=== PATIENT | female | born 1995 | race American Indian/Alaskan Native ===

== ENCOUNTER 2019-05-13 11:06 | Emergency (ER) | payer SELFPAY ==
[2019-05-13 11:42] VITALS: BP 112/83
--- NOTE | 2019-05-13 11:47 | Event Note ---
ED Screening Note Date of service: 05/13/19 Time: 11:46 ED Screening Note: 24 y/o female comes in for 3 day history of abd pain with diarrhea than next day having urinary frequency and pain or LLQ no to RLQ. This initial assessment/diagnostic orders/clinical plan/treatment(s) is/are subject to change based on patients health status, clinical progression and re- assessment by fellow clinical providers in the ED. Further treatment and workup at subsequent clinical providers discretion. Patient/guardian urged not to elope from the ED as their condition may be serious if not clinically assessed and managed. Initial orders include: UA HCG
[2019-05-13 12:21] LABS: HCG Qualitative,Urine Positive (Negative)
[2019-05-13 12:41] LABS: Bilirubin,Urine NEG (Negative); Blood,Urine NEG (Negative); Color,Urine Yellow (Yellow); Protein,Urine <15 mg/dL mg/dL (Negative); Urobilinogen,Urine < 2.0 mg/dL (<2.0)
--- NOTE | 2019-05-13 14:55 | Emergency Department Report ---
ED Female HPI - General Chief complaint: Abdominal Pain Stated complaint: (L) SIDE PAIN/DIARRHEA/DIZZINESS Time Seen by Provider: 05/13/19 11:45 Source: patient Mode of arrival: Ambulatory Limitations: No Limitations - History of Present Illness MD Complaint: dysuria, pelvic pain -: Sudden, days(s) (3) Location: suprapubic Radiation: non-radiating Severity: moderate Quality: cramping, sharp, dull Consistency: constant Are you Now?: No Associated Symptoms: denies other symptoms. denies: vaginal bleeding, abdominal pain, dysuria, hematuria, rash, weakness - Related Data Sexually active: No Previous Rx's Medication Instructions Recorded Last Taken Type Acetaminophen [Tylenol Extra 500 mg PO TID #20 tablet 12/27/18 Unknown Rx Strength] Allergies Allergy/AdvReac Type Severity Reaction Status Date / Time No Known Allergies Allergy Verified 05/13/19 11:10 ED Review of Systems ROS: Stated complaint: (L) SIDE PAIN/DIARRHEA/DIZZINESS Other details as noted in HPI Comment: All other systems reviewed and negative ED Past Medical Hx - Past Medical History Previous Medical History?: Yes Hx Asthma: Yes Additional medical history: pcos - Surgical History Past Surgical History?: Yes Additional Surgical History: - Social History Smoking Status: Never Smoker Substance Use Type: None - Medications Home Medications: Home Medications Medication Instructions Recorded Confirmed Last Taken Type Acetaminophen [Tylenol Extra 500 mg PO TID #20 tablet 12/27/18 Unknown Rx Strength] ED Physical Exam - General Limitations: No Limitations General appearance: alert, in no apparent distress - Head Head exam: Present: atraumatic, normocephalic - Eye Eye exam: Present: normal appearance, PERRL, EOMI Pupils: Present: normal accommodation - ENT ENT exam: Present: normal exam, mucous membranes moist, TM's normal bilaterally - Neck Neck exam: Present: normal inspection, full ROM - Respiratory Respiratory exam: Present: normal lung sounds bilaterally. Absent: respiratory distress, wheezes, rales, chest wall tenderness, accessory muscle use - Cardiovascular Cardiovascular Exam: Present: regular rate, normal rhythm. Absent: systolic murmur, diastolic murmur, rubs, gallop - GI/Abdominal GI/Abdominal exam: Present: soft, tenderness (tenderness to the suprapubic region with palpation. No CVA tenderness. Os is 2+), normal bowel sounds - Extremities Exam Extremities exam: Present: normal inspection - Back Exam Back exam: Present: normal inspection - Neurological Exam Neurological exam: Present: alert, oriented X3 - Psychiatric Psychiatric exam: Present: normal affect, normal mood - Skin Skin exam: Present: warm, dry, intact, normal color. Absent: rash ED Course Vital Signs 05/13/19 05/13/19 11:40 11:42 Temperature 98.1 F 98.1 F Pulse Rate 91 H 91 H Respiratory 18 18 Rate Blood Pressure 112/83 Blood Pressure 112/83 [Right] O2 Sat by Pulse 96 Oximetry ED Medical Decision Making - Radiology Data Radiology results: report reviewed (Reports Shows Early Gestational Sac Containing a Yolk Sac Daily 6 Weeks 2 Days and a Complex Left Ovarian cyst) - Medical Decision Making 24-year-old -[place] female to emergency Department with pelvic pain and cramping and Stacie, nausea and diarrhea found to have a positive test is 6 weeks Critical care attestation.: If time is entered above; I have spent that time in minutes in the direct care of this critically ill patient, excluding procedure time. ED Disposition Clinical Impression: , Ovarian cyst Disposition: DC-01 TO HOME OR SELFCARE Is pt being admited?: No Does the pt Need Aspirin: No Condition: Stable Instructions: Abdominal Pain (ED), (ED), Ovarian Cyst (ED) Referrals: [facility] [Provider Group] - 3-5 Days
--- NOTE | 2019-05-13 17:19 | Ultrasound Report ---
OB ultrasound. 05/13/2019. HISTORY: Vaginal bleeding. FINDINGS: Imaging was performed transabdominally and endovaginally. The uterus measures 10.9 x 4.6 x 5.3 cm. An early gestational sac containing a yolk sac is dated 6 we eks 2 days. Right ovary measures 2.6 x 1.8 x 2 cm. Left ovary measures 3.2 x 2.1 x 3.7 cm a complex lesion at the left adnexa measuring 2.4 cm is likely a partially ruptured corpus luteum cyst. Both ovaries demonst rate flow. Negative for adnexal mass or fluid collection. IMPRESSION: 1. Early gestational sac containing a yolk sac dated 6 weeks 2 days. 2. Complex lesion left ovary is likely a partially ruptured corpus luteum cyst. Signer Name: Jayce Rosas MD Signed: 05/13/2019 5:15 PM Workstation Name: [id number]
== END 2019-05-13 18:48 | disposition home or self-care (01) ==
LOC: ED 11:06
DX: O34.81 Maternal care for other abnormalities of pelvic organs, first trimester (principal); N83.202 Unspecified ovarian cyst, left side; Z3A.01 Less than 8 weeks gestation of pregnancy
CPT/HCPCS: 36415; 76801; 76817; 81001; 81025; 84702

== ENCOUNTER 2019-06-13 00:09 | Emergency (ER) | payer MEDICAID, OTHER ==
[2019-06-13 00:33] VITALS: BP 118/75
[2019-06-13] MEDS ORDERED: HYDROcodone/ACETAMINOPHEN 5-325 MG TAB PO ONE (01:05)
--- NOTE | 2019-06-13 01:11 | Emergency Department Report ---
ED Female HPI - General Chief complaint: Abdominal Pain Stated complaint: HEAVY BLEEDING AND CRAMPING Time Seen by Provider: 06/13/19 01:00 Source: patient, old records reviewed (pt seen here 05/13 had US showing gestation sac and yolk sac: estimated age 6w 2days) Mode of arrival: Ambulatory Limitations: No Limitations - History of Present Illness Initial comments: 24-year-old female with a past medical history of PCOS presents to the hospital complaining of increased vaginal bleeding with clots. Patient had a medical on June 09 and has been having some bleeding since. Today pain and bleeding increased. She has used 5 pads today, having cramping, and passing clots. Symptoms not improved with ibuprofen 800 and [id number] pain reliever medication. - Related Data Previous Rx's Medication Instructions Recorded Last Taken Type Acetaminophen [Tylenol Extra 500 mg PO TID #20 tablet 12/27/18 Unknown Rx Strength] Ibuprofen [Motrin] 800 mg PO Q8HR PRN #30 tablet 06/13/19 Unknown Rx Methylergonovine [Methergine] 0.2 mg PO Q8HR #2 tablet 06/13/19 Unknown Rx oxyCODONE /ACETAMINOPHEN [Percocet 1 tab PO Q6HR PRN #20 tablet 06/13/19 Unknown Rx 5/325] Allergies Allergy/AdvReac Type Severity Reaction Status Date / Time No Known Allergies Allergy Verified 05/13/19 11:10 ED Review of Systems ROS: Stated complaint: HEAVY BLEEDING AND CRAMPING Other details as noted in HPI Comment: All other systems reviewed and negative ED Past Medical Hx - Past Medical History Previous Medical History?: Yes Hx Asthma: Yes Additional medical history: pcos - Surgical History Past Surgical History?: Yes Additional Surgical History: abortionx2 - Social History Smoking Status: Never Smoker Substance Use Type: None - Medications Home Medications: Home Medications Medication Instructions Recorded Confirmed Last Taken Type Acetaminophen [Tylenol Extra 500 mg PO TID #20 tablet 12/27/18 Unknown Rx Strength] Ibuprofen [Motrin] 800 mg PO Q8HR PRN #30 tablet 06/13/19 Unknown Rx Methylergonovine [Methergine] 0.2 mg PO Q8HR #2 tablet 06/13/19 Unknown Rx oxyCODONE /ACETAMINOPHEN [Percocet 1 tab PO Q6HR PRN #20 tablet 06/13/19 Unknown Rx 5/325] ED Physical Exam - General Limitations: No Limitations - Other Other exam information: Gen.: No acute distress Head: Atraumatic Eyes: Normal appearance ENT: Moist mucous membranes Neck: Normal appearance, no posterior midline tenderness, no meningismus Chest: Clear to auscultation bilaterally Cardiovascular: Regular rate and rhythm Abdomen: Normal appearance, soft, suprapubic tenderness, no rebound or guarding, normal bowel sounds : some clotted blood in vaginal vault, no significant active hemorrhage Back: Normal appearance, nontender Extremity: Full range of motion, normal appearance Neuro: Alert oriented 3, clear speech, no focal motor or sensory deficit Psychiatric: Appropriate Skin: No rash ED Course Vital Signs 06/13/19 00:32 Temperature 98.1 F Pulse Rate 81 Respiratory 16 Rate Blood Pressure 118/75 [Right] O2 Sat by Pulse 98 Oximetry - Consultations Consultation #1: 06/13/19 04:[address] proctor [employer] recommends Methergine 0.2 mg every 8 hours 3 doses ED Medical Decision Making - Lab Data Result diagrams: 06/13/19 00:46 Lab Results 06/13/19 06/13/19 06/13/19 Range/Units 00:46 00:46 00:50 WBC 6.6 (4.5-11.0) K/mm3 RBC 3.88 (3.65-5.03) M/mm3 Hgb 12.2 (10.1-14.3) gm/dl Hct 35.4 (30.3-42.9) % MCV 91 (79-97) fl MCH 31 (28-32) pg MCHC 35 H (30-34) % RDW 14.3 (13.2-15.2) % Plt Count 284 (140-440) K/mm3 Lymph % (Auto) 24.7 (13.4-35.0) % Sutton % (Auto) 13.3 H (0.0-7.3) % Eos % (Auto) 1.5 (0.0-4.3) % Baso % (Auto) 0.8 (0.0-1.8) % Lymph # 1.6 (1.2-5.4) K/mm3 Sutton # 0.9 H (0.0-0.8) K/mm3 Eos # 0.1 (0.0-0.4) K/mm3 Baso # 0.1 (0.0-0.1) K/mm3 Seg Neutrophils % 59.7 (40.0-70.0) % Seg Neutrophils # 4.0 (1.8-7.7) K/mm3 HCG, Quant 4082 H (0-4) mIU/mL Blood Type O POSITIVE Antibody Screen Negative - Radiology Data Radiology results: report reviewed ULTRASOUND OBSTETRIC INDICATION / CLINICAL INFORMATION: hx of with increased bleeding and dc.. TECHNIQUE: Transabdominal and Transvaginal. COMPARISON: Obstetric ultrasound 05/13/2019 FINDINGS: UTERUS: The previously seen gestational sac is no longer visualized, compatible with provided history of completed . Heterogeneous content is seen within the endometrial cavity, measuring up to 2.9 cm. No internal vascularity is noted, most compatible with blood products. Blood products are seen extending into the cervical canal. ADNEXA: No significant abnormality. The right ovary measures 2.6 x 1.6 x 1.8 cm and the left ovary measures 3.4 x 2.0 x 2.8 cm. FREE FLUID: None. ADDITIONAL FINDINGS: None. IMPRESSION: 1. The previously seen gestational sac is no longer visualized, compatible with provided history of completed . 2. Heterogeneous content within the endometrial cavity without internal vascularity, most compatible with blood products/clot. - Medical Decision Making Patient has bleeding with normal H&H, vital signs, and minimal blood in vault with clot. Additional pain medicine ordered. Patient treated with Methergine as per [employer]ENDANT recommendation. Follow-up advised. - Differential Diagnosis name products, ectopic, dysmenorrhea Critical Care Time: No Critical care attestation.: If time is entered above; I have spent that time in minutes in the direct care of this critically ill patient, excluding procedure time. ED Disposition Clinical Impression: Status post elective , Episode of heavy vaginal bleeding Disposition: DC-01 TO HOME OR SELFCARE Is pt being admited?: No Does the pt Need Aspirin: No Condition: Stable Instructions: Dysfunctional Uterine Bleeding (ED) Additional Instructions: Take the medication as prescribed. Follow-up with your doctor or with the doctor/clinic provided. Return if symptoms worsen as indicated by your discharge instructions. Prescriptions: Methylergonovine [Methergine] 0.2 mg PO Q8HR #2 tablet Ibuprofen [Motrin] 800 mg PO Q8HR PRN #30 tablet PRN Reason: Pain, Moderate (4-6) oxyCODONE /ACETAMINOPHEN [Percocet 5/325] 1 tab PO Q6HR PRN #20 tablet PRN Reason: Pain Referrals: MARLENE AARON MD [Staff Physician] - 2-3 Days Time of Disposition: 04:21
[2019-06-13 01:13] LABS: Basophils # (Auto) 0.1 K/mm3 (0.0-0.1); Basophils % (Auto) 0.8 % (0.0-1.8); Eosinophils # (Auto) 0.1 K/mm3 (0.0-0.4); Eosinophils % (Auto) 1.5 % (0.0-4.3); Hematocrit 35.4 % (30.3-42.9); Hemoglobin 12.2 gm/dl (10.1-14.3); Lymphocytes # (Auto) 1.6 K/mm3 (1.2-5.4); Lymphocytes % (Auto) 24.7 % (13.4-35.0); Mean Corpuscular HGB Conc 35 % (30-34); Mean Corpuscular Volume 91 fl (79-97); Monocytes # (Auto) 0.9 K/mm3 (0.0-0.8); Monocytes % (Auto) 13.3 % (0.0-7.3); Platelet Count 284 K/mm3 (140-440); Red Blood Count 3.88 M/mm3 (3.65-5.03); Red Cell Distribution Width 14.3 % (13.2-15.2)
[2019-06-13] MEDS ORDERED: HYDROcodone/ACETAMINOPHEN 5-325 MG TAB ONE (03:19)
--- NOTE | 2019-06-13 03:38 | Ultrasound Report ---
ULTRASOUND OBSTETRIC INDICATION / CLINICAL INFORMATION: hx of with increased bleeding and dc.. TECHNIQUE: Transabdominal and Transvaginal. COMPARISON: Obstetric ultrasound 05/13/2019 FINDINGS: UTERUS: The previously seen gestational sac is no longer visualized, compatible with provided history of completed . Heterogeneous content is seen within the endometrial cavity, measuring up to 2.9 cm. No internal vascularity is noted, most compatible with blood products. Blood products are see n extending into the cervical canal. ADNEXA: No significant abnormality. The right ovary measures 2.6 x 1.6 x 1.8 cm and the left ovary me asures 3.4 x 2.0 x 2.8 cm. FREE FLUID: None. ADDITIONAL FINDINGS: None. IMPRESSION: 1. The previously seen gestational sac is no longer visualized, compatible with provided history of c ompleted . 2. Heterogeneous content within the endometrial cavity without internal vascularity, most compatible with blood products/clot. Signer Name: Krystle Segura MD Signed: 06/13/2019 3:34 AM Workstation Name: [id number]
[2019-06-13] MEDS ORDERED: KETOROLAC 60 MG/2 ML INJ IM ONE (03:50)
[2019-06-13] MEDS ORDERED: oxyCODONE /ACETAMINOPHEN 5-325MG TAB PO ONE (03:50)
[2019-06-13] MEDS ORDERED: METHYLERGONOVINE 0.2 MG TABLET PO ONE (04:05)
== END 2019-06-13 06:00 | disposition home or self-care (01) ==
LOC: ED 00:09
DX: N93.9 Abnormal uterine and vaginal bleeding, unspecified (principal); J45.909 Unspecified asthma, uncomplicated; Z79.899 Other long term (current) drug therapy; Z98.890 Other specified postprocedural states
CPT/HCPCS: 36415; 76801; 76817; 84702; 85025; 86850; 86900; 86901; 96372; 99284; J1885